=== PATIENT | male | born 1940 | race Caucasian/White ===

== ENCOUNTER 2017-06-05 09:35 | Observation (INO) | payer MEDICARE, OTHER ==
[~2017-06-05] VITALS: Ht 185.4 cm; Wt 108.2 kg
--- NOTE | ~2017-06-05 | PRECARD ---
H&P [address] [address] NAME: STEVE MALHOTRA : 44 STATUS : ADM Axel PAT#: [id number] AGE: 76 ADM/REG DATE : 06/05/17 MR#: [id number] REPORT SERV DATE: 06/06/17 DICTATED BY: KATHLEEN RIOS DATE: 06/06/17 REPORT STATUS : Draft TRANSCRIBED BY: MODL DATE: 06/06/17 DATE OF ADMISSION: 06/05/2017 HISTORY OF PRESENT ILLNESS: The patient is a 76-year-old male who had coronary stenting last week. He presented to the emergency room complaining of shortness of breath and chest pain. Cardiac enzymes are negative, and EKG showed no acute changes. He was admitted for further evaluation. PAST MEDICAL HISTORY: Remarkable for coronary artery disease, diabetes, and hyperlipidemia. SOCIAL HISTORY: The patient does not smoke. FAMILY HISTORY: Positive for coronary disease. REVIEW OF SYSTEMS: The patient denies cough, wheeze, sputum production, vomiting, diarrhea, or dysuria. PHYSICAL EXAMINATION: VITAL SIGNS: Blood pressure is 150/70, heart rate is 60 and regular, respirations 16, nonlabored. HEENT: Unremarkable. NECK: No jugular venous distention with good carotid upstroke. CHEST: Clear. CARDIOVASCULAR: PMI is not displaced. S1 is normal. S2 is narrowly split. No gallop is present. ABDOMEN: Soft, nontender with normal bowel sounds. EXTREMITIES: Show no cyanosis, clubbing, or edema. SKIN: Warm and dry with no pallor or icterus. NEURO/PSYCH: The patient is oriented x3 with appropriate affect. LABORATORY DATA: Potassium is 4, BUN 15, creatinine 0.96, hematocrit 38.6. IMPRESSION: 1. Recurrent chest pain, status post recent stenting. 2. Diabetes. 3. Hyperlipidemia. PLAN: We will proceed with nuclear perfusion scan if cardiac enzymes are negative. TRACY/JAMIR Kathleen Rios M.D., F.A.C.C. [facility] [address] [place]. [address] NAME: STEVE MALHOTRA : 44 STATUS : ADM Axel PAT#: [id number] AGE: 76 ADM/REG DATE : 06/05/17 MR#: [id number] REPORT SERV DATE: 06/06/17 DICTATED BY: KATHLEEN RIOS DATE: 06/06/17 REPORT STATUS : Draft TRANSCRIBED BY: MODL DATE: 06/06/17 / [id number] CC: Kathleen Rios M.D., F.A.C.CPankaj Guerin D.O.
[2017-06-05 12:24] LABS: PARTIAL THROMBO TIME 29.8 SEC (22.5-37.2); PROTIME (NOT ORD) 12.9 SEC (12.0-14.5)
[2017-06-05 12:30] LABS: CALCIUM, SERUM 9.3 MG/DL (8.5-10.4); CHEST PAIN PROFILE TAT 0 Hrs 21 Mins; CHLORIDE, SERUM 108 MMOL/L (96-112); CO2 (CARBON DIOXIDE) 27 MMOL/L (24-34); CREATININE 0.96 MG/DL (0.70-1.30); GFR AFRICAN AMERICAN 90 ML/MIN (>=60); GFR NON AFRICAN AMERICAN 78 ML/MIN (>=60); SODIUM, SERUM 141 MMOL/L (135-148); TROPONIN I <0.02 NG/ML (<0.05)
[2017-06-05 12:31] LABS: BUN (BLOOD UREA NITROGEN) 15 MG/DL (6-23); GLUCOSE, SERUM 118 MG/DL (60-99)
[2017-06-05 13:25] LABS: BASOPHILS 0.2 %; BASOPHILS ABSOLUTE 0.02 10/3/uL (0.0-0.16); EOSINOPHILS 2.7 %; EOSINOPHILS ABSOLUTE 0.27 10/3/uL (0.0-0.53); HEMATOCRIT 38.6 % (40.0-51.0); HEMOGLOBIN 12.5 g/dL (13.6-17.8); IMMATURE GRANULOCYTES 0.3 %; IMMATURE GRANULOCYTES ABSOLUTE 0.03 10/3/uL (0.0-0.11); LYMPHOCYTES 19.6 %; LYMPHOCYTES ABSOLUTE 1.94 10/3/uL (0.67-4.30); MEAN CORPUS HGB CONC 32.4 g/dL (32.0-36.0); MEAN CORPUSCULAR HEMOGLOB 30.3 pg (26.0-34.0); MEAN CORPUSCULAR VOLUME 93.5 fL (80-100); MEAN PLATELET VOLUME 9.9 fL (9.2-13.0); MONOCYTES ABSOLUTE 1.19 10/3/uL (0.21-1.20); NEUTROPHILS 65.2 %; NEUTROPHILS ABSOLUTE 6.47 10/3/uL (2.02-8.40); PLATELET COUNT 278 10/3/uL (150-400); RBC DISTRIBUTION WIDTH 14.5 % (12.0-16.0); RED CELL COUNT 4.13 10/6/uL (4.7-6.1); WHITE BLOOD CELLS 9.9 10/3/uL (4.5-10.5)
[2017-06-05 13:26] LABS: ER CBC TAT 0 Hrs 57 Mins
[2017-06-05 13:27] LABS: MANUAL DIFF NO %
[2017-06-05] MEDS ORDERED: HALF81 PO (14:21)
[2017-06-05] MEDS ORDERED: BRILINTA90 MG PO (14:21)
[2017-06-05] MEDS ORDERED: LANTUS SC (14:22)
[2017-06-05] MEDS ORDERED: COZAAR100 MG PO (14:22)
[2017-06-05] MEDS ORDERED: FLEX PO (14:22)
[2017-06-05] MEDS ORDERED: METHOC500B PO (14:23)
[2017-06-05] MEDS ORDERED: GLUCOPHAGE1000 MG PO (14:23)
[2017-06-05] MEDS ORDERED: NOVOLOG SC (14:24)
[2017-06-05] MEDS ORDERED: TOPXL50 PO (14:24)
[2017-06-05] MEDS ORDERED: PRAVACHOL40 MG PO (14:24)
[2017-06-05] MEDS ORDERED: VITC500 PO (14:25)
[2017-06-05] MEDS ORDERED: PROAIR HFA INH (14:25)
[2017-06-05] MEDS ORDERED: THERGRANM PO (14:25)
[2017-06-05] MEDS ORDERED: VOLTAREN1 % TOP (14:25)
[2017-06-05] MEDS ORDERED: OS500+D PO (14:25)
[2017-06-05] MEDS ORDERED: AFRIN15 NAS (14:26)
[2017-06-05 20:20] LABS: PARTIAL THROMBO TIME 39.3 SEC (22.5-37.2)
== END 2017-06-06 14:19 | disposition home or self-care (01) ==
LOC: ER 09:35 → CDU2 14:24 → CDU1 14:24 → CDU2 15:10
PROVIDERS: Emergency Medicine; Internal Medicine Interventional Cardiology
DX: R07.9 Chest pain, unspecified (principal); E11.9 Type 2 diabetes mellitus without complications; E78.5 Hyperlipidemia, unspecified; I25.10 Atherosclerotic heart disease of native coronary artery without angina pectoris; Z79.82 Long term (current) use of aspirin; Z79.899 Other long term (current) drug therapy; Z79.4 Long term (current) use of insulin; Z87.891 Personal history of nicotine dependence; Z88.8 Allergy status to other drugs, medicaments and biological substances; Z98.890 Other specified postprocedural states
CPT/HCPCS: 71020; 78452; 80048; 82962; 83735; 83880; 84484; 85025; 85610; 85730; 93005; 93017; 96372; 99285; A9270-GY; A9502; G0378